=== PATIENT | male | born 1935 | race Caucasian/White ===

== ENCOUNTER 2023-12-04 18:28 | Observation (INO) | payer OTHER, SELFPAY ==
[2023-12-04 13:20] VITALS: BMI 24.0
[2023-12-04] MEDS: NSS 1000 IV (13:43)
[2023-12-04 14:00] LABS: % Basophils 0.2 % (0-2); % Eosinophils 0.2 % (0-6); % Immature Granulocytes 0.6 % (0-0.5); % Lymphocytes 16.6 % (20.5-51.1); % Monocytes 13.4 % (1.7-9.3); Absolute Lymphocytes 0.8 10^3/uL (1.2-3.4); Absolute Monocytes 0.6 10^3/uL (0.1-0.6); Absolute Neutrophils 3.3 10^3/uL (1.4-6.5); COVID-19 Antigen Positive (Negative); Hematocrit 33.3 % (39.0-52.0); Hemoglobin 12.1 g/dL (13.0-18.0); Mean Corp Hgb Conc. 36.3 g/dL (33.0-37.0); Mean Corpuscular Hgb 31.6 pg (27.0-31.0); Mean Corpuscular Volume 86.9 fL (80.0-94.0); Mean Platelet Volume 10.6 fL (7.4-10.4); Nucleated Red Blood Cells % 0 % (-); Platelet Count 210 10^3/uL (130-400); Red Blood Cell Count 3.83 10^6/uL (4.70-6.10); White Blood Cell Count 4.7 10^3/uL (4.8-10.8)
[2023-12-04 14:10] LABS: ALT (SGPT) 16 U/L (0-50); AST (SGOT) 26 U/L (17-59); Albumin 3.4 g/dl (3.5-5.0); Alkaline Phosphatase 61 U/L (38-126); Blood Urea Nitrogen 17 mg/dl (9-20); Calcium 8.3 mg/dl (8.4-10.2); Carbon Dioxide 23 mmol/L (22-30); Chloride 104 mmol/L (98-107); Estimated Creatinine Clearance 79 ml/min; Glucose 108 mg/dl (70-99); Sodium 132 mmol/L (135-145); Total Bilirubin 1.1 mg/dl (0.2-1.3); Total Protein 6.1 g/dl (6.3-8.2); eGFR > 60.00
[2023-12-04 15:18] VITALS: BP 114/97
--- NOTE | 2023-12-04 15:25 | ED.GENMED ---
History of Present Illness
<Dolores Melgar MD, Resident - Last Filed: 12/04/23 20:08>
General
Chief Complaint: Fainting/Passed Out
Source: patient
Time Seen by Provider: 12/04/23 15:04
History of Present Illness
History of Present Illness:
87 years old male presented to ER today complaining from passing put today at the bathroom. The patient reported that he started to feel dizzy and lightheadedness today when he was in the bathroom and slowly collapsed on the floor. The patient`s
helped him to fall down slowly. Reports he does not remember how he collapsed on the floor. Denies hitting his head. Denies SOB and chest pain or feeling different palpitations at that time. The patient reports he has a billing and insurance coordinator at
[facility] (Dr Donte Sanchez) who recommended him to have a pace maker. He was not scheduled for a pace maker. Patient and his verbally agreed to contact with their billing and insurance coordinator and gather his recent information.
PMH:HTN, PVC, BPH
Past Surgical History:Left Hip Surgery
If applicable-neuro sx onset
Onset of symptoms known: Yes
Date of onset of symptoms: 12/04/23
Past History
<Dolores Melgar MD, Resident - Last Filed: 12/04/23 20:08>
Past History
ED Past Medical History: HTN, Other (PVC) and Other (BPH )
Phy Exam
<Dolores Melgar MD, Resident - Last Filed: 12/04/23 20:08>
General Physical Exam
General Presentation: moderate distress
General age: appears stated age
General Skin: dry
General Habitus: elderly
General Mental: alert
Cardiovascular Exam
Cardiovascular Exam: no edema and bradycardia
Pulmonary Exam
Pulmonary Exam: lungs clear and no respiratory distress
Neurological Exam
Neurological Exam: alert, oriented x3, CN II-XII intact and no motor deficits
Course
<Dolores Melgar MD, Resident - Last Filed: 12/04/23 20:08>
Orders/Labs/Results
Orders:
Orders
12/04/23 13:19
Electrocardiogram (*1) Urgent
Reason for Study: Syncope
EKG- Treatment ONCE
12/04/23 13:38
CMP [Comprehensive Metabolic Panel] Urgent
COVID-19 Antigen Urgent
Source: Nasal Swab
Complete Blood Count/With Diff Urgent
12/04/23 13:43
0.9% Sodium Chloride 1000 ml [Nss] 1,000 ml IV BOLUS
12/04/23 Dinner
Regular
At Your Request: Full Participation
Does patient need a safe tray?: No
12/04/23 16:13
Add On- LAB Urgent
Tests Added?: troponin
CR Chest - 2 Views Urgent
Comment:
Reason For Exam: COVID PNA?
12/04/23 18:01
Admit/Transfer Patient As Directed
Co-Sign Provider:
Level of Care: Observation services
Assign to:: Telemetry
Physician / Group: jin
Diagnosis: syncope
Reason for Telemetry: Arrhythmia
Date to Stop Telemetry: 12/07/23
Time to Stop Telemetry: 11:00
Code Status As Directed
Resuscitation Status: Full Code
PRN Pain Medication Management As Directed
May give lesser potent ordered pain med per pt: Yes
preference::
Protocol:: Medication orders for pain may be administered in a
manner that supports deferring to patient preference
when the pt is:
- Requesting an ordered lesser potent pain medication.
Least to most potent pain medications are defined
as: acetaminophen < NSAID < tramadol < opioids
(morphine, oxycodone, hydromorphone).
- Requesting a lesser dose of the same medication IF
ORDERED.
- Requesting a less intrusive route of administration
if both routes are prescribed by the provider (PO <
IV).
12/04/23 18:08
Potassium Chloride [KCl] 40 meq PO NOW STA
12/04/23 19:37
Acetaminophen [Tylenol] 650 mg PO Q4HPRN PRN
12/04/23 19:37
CARDIOLOGY CONSULT Routine
Consulting Provider: Brian Krause
Was physician already notified: Yes
Activity As Directed
Activity Level: As Tolerated
Orthostatic Vital Signs As Directed
Orthostatic VS Frequency: Now
Vital Signs As Directed
Frequency: Per unit guidelines
DX Deep Vein Thrombosis Video Routine
12/04/23 20:00
Heparin 5,000 units SC Q12
NIFEdipine EXTENDED RELEASE [Procardia Xl (Extended Release)] 30 mg PO BID
Nirmatrelvir/Ritonavir [Paxlovid 2X150 mg-100 mg Dose Pack] 1 dose PO BID
12/04/23 22:00
Tamsulosin [Flomax] 0.4 mg PO HS
12/05/23 06:00
Complete Blood Count/With Diff IN AM
Comprehensive Metabolic Panel IN AM
12/05/23 08:00
Atorvastatin [Lipitor] 10 mg PO DAILY
Hydrochlorothiazide [Oretic] 25 mg PO DAILY
Lisinopril [Zestril] 5 mg PO DAILY
12/07/23 11:00
DC Protocol for Telemetry ONCE
Abnormal Lab Results
12/04/23
13:38
WBC 4.7 L 10^3/uL
(4.8-10.8)
RBC 3.83 L 10^6/uL
(4.70-6.10)
Hgb 12.1 L g/dL
(13.0-18.0)
Hct 33.3 L %
(39.0-52.0)
MCH 31.6 H pg
(27.0-31.0)
MPV 10.6 H fL
(7.4-10.4)
Absolute Lymphs (auto) 0.8 L 10^3/uL
(1.2-3.4)
Immature Gran % 0.6 H %
(0-0.5)
Lymphocytes % 16.6 L %
(20.5-51.1)
Monocytes % 13.4 H %
(1.7-9.3)
Sodium 132 L mmol/L
(135-145)
Potassium 3.0 L mmol/L
(3.5-5.1)
Glucose 108 H mg/dl
(70-99)
Calcium 8.3 L mg/dl
(8.4-10.2)
Total Protein 6.1 L g/dl
(6.3-8.2)
Albumin 3.4 L g/dl
(3.5-5.0)
SARS-CoV-2 Antigen Positive A
(Negative)
12/04/23 13:38
12/04/23 13:38
Vital Signs
Initial and Last Documented VS:
Initial Vital Signs
Pulse Resp
66 21
12/04/23 13:23 12/04/23 13:23
Last Documented Vital Signs
Temp Pulse Resp BP Pulse Ox
98.1 F 55 20 148/58 96
12/04/23 20:01 12/04/23 21:16 12/04/23 20:01 12/04/23 20:02 12/04/23 20:01
Ofelialt;Marissa Mendenhall MD - Last Filed: 12/04/23 23:10>
Orders/Labs/Results
Orders:
Orders
12/04/23 13:19
Electrocardiogram (*1) Urgent
Reason for Study: Syncope
EKG- Treatment ONCE
12/04/23 13:38
CMP [Comprehensive Metabolic Panel] Urgent
COVID-19 Antigen Urgent
Source: Nasal Swab
Complete Blood Count/With Diff Urgent
12/04/23 13:43
0.9% Sodium Chloride 1000 ml [Nss] 1,000 ml IV BOLUS
12/04/23 Dinner
Regular
At Your Request: Full Participation
Does patient need a safe tray?: No
12/04/23 16:13
Add On- LAB Urgent
Tests Added?: troponin
CR Chest - 2 Views Urgent
Comment:
Reason For Exam: COVID PNA?
12/04/23 18:01
Admit/Transfer Patient As Directed
Co-Sign Provider:
Level of Care: Observation services
Assign to:: Telemetry
Physician / Group: jin
Diagnosis: syncope
Reason for Telemetry: Arrhythmia
Date to Stop Telemetry: 12/07/23
Time to Stop Telemetry: 11:00
Code Status As Directed
Resuscitation Status: Full Code
PRN Pain Medication Management As Directed
May give lesser potent ordered pain med per pt: Yes
preference::
Protocol:: Medication orders for pain may be administered in a
manner that supports deferring to patient preference
when the pt is:
- Requesting an ordered lesser potent pain medication.
Least to most potent pain medications are defined
as: acetaminophen < NSAID < tramadol < opioids
(morphine, oxycodone, hydromorphone).
- Requesting a lesser dose of the same medication IF
ORDERED.
- Requesting a less intrusive route of administration
if both routes are prescribed by the provider (PO <
IV).
12/04/23 18:08
Potassium Chloride [KCl] 40 meq PO NOW STA
12/04/23 19:37
Acetaminophen [Tylenol] 650 mg PO Q4HPRN PRN
12/04/23 19:37
CARDIOLOGY CONSULT Routine
Consulting Provider: Brain Krause
Was physician already notified: Yes
Activity As Directed
Activity Level: As Tolerated
Orthostatic Vital Signs As Directed
Orthostatic VS Frequency: Now
Vital Signs As Directed
Frequency: Per unit guidelines
DX Deep Vein Thrombosis Video Routine
12/04/23 20:00
Heparin 5,000 units SC Q12
NIFEdipine EXTENDED RELEASE [Procardia Xl (Extended Release)] 30 mg PO BID
Nirmatrelvir/Ritonavir [Paxlovid 2X150 mg-100 mg Dose Pack] 1 dose PO BID
12/04/23 22:00
Tamsulosin [Flomax] 0.4 mg PO HS
12/05/23 06:00
Complete Blood Count/With Diff IN AM
Comprehensive Metabolic Panel IN AM
12/05/23 08:00
Atorvastatin [Lipitor] 10 mg PO DAILY
Hydrochlorothiazide [Oretic] 25 mg PO DAILY
Lisinopril [Zestril] 5 mg PO DAILY
12/07/23 11:00
DC Protocol for Telemetry ONCE
Abnormal Lab Results
12/04/23
13:38
WBC 4.7 L 10^3/uL
(4.8-10.8)
RBC 3.83 L 10^6/uL
(4.70-6.10)
Hgb 12.1 L g/dL
(13.0-18.0)
Hct 33.3 L %
(39.0-52.0)
MCH 31.6 H pg
(27.0-31.0)
MPV 10.6 H fL
(7.4-10.4)
Absolute Lymphs (auto) 0.8 L 10^3/uL
(1.2-3.4)
Immature Gran % 0.6 H %
(0-0.5)
Lymphocytes % 16.6 L %
(20.5-51.1)
Monocytes % 13.4 H %
(1.7-9.3)
Sodium 132 L mmol/L
(135-145)
Potassium 3.0 L mmol/L
(3.5-5.1)
Glucose 108 H mg/dl
(70-99)
Calcium 8.3 L mg/dl
(8.4-10.2)
Total Protein 6.1 L g/dl
(6.3-8.2)
Albumin 3.4 L g/dl
(3.5-5.0)
SARS-CoV-2 Antigen Positive A
(Negative)
12/04/23 13:38
12/04/23 13:38
Vital Signs
Initial and Last Documented VS:
Initial Vital Signs
Pulse Resp
66 21
12/04/23 13:23 12/04/23 13:23
Last Documented Vital Signs
Temp Pulse Resp BP Pulse Ox
98.1 F 55 20 148/58 96
12/04/23 20:01 12/04/23 21:16 12/04/23 20:01 12/04/23 20:02 12/04/23 20:01
<Dolores Melgar MD, Resident - Last Filed: 12/04/23 20:08>
MDM/Problems Addressed
Differential Diagnosis Includes:
VA, Arrhythmia, TIA, Dehydration, Musculoskeletal problems, PNA
MDM/Problems Addressed:
CBC, CMP, Covid test, influenza was ordered. [facility] Syncope Rule assessment was done for the patient.
It was decided to admit the patient to the hospital.
<Dolores Melgar MD, Resident - Last Filed: 12/04/23 20:08>
*Critical Care Note
Total Time (30-74mins, 75-104mins- exclusive of procedures): Not Applicable
ED Attending Note
<Dolores Melgar MD, Resident - Last Filed: 12/04/23 20:08>
-
Portions of this chart may have been created with voice recognition software.� Occasional wrong word or��sound alike� substitutions may have occurred due to the inherent limitations of voice recognition software.
<Marissa Mendenhall MD - Last Filed: 12/04/23 23:10>
ED Attending Note
Patient seen and examined by attending physician: Yes
I performed a history and physical exam of patient and discussed management with resident, I reviewed resident's note and agree with documented findings and plan of care.: Yes
ED Attending Note:
Patient is a 87-year-old male with history of hypertension, PVCs on metoprolol, hyperlipidemia presenting to the emergency department after syncopal event. Patient was diagnosed with COVID 2 days ago. He has been having decreased p.o. secondary to
it. Has been having fevers chills cough congestion. Today he was lightheaded dizzy when he went to the bathroom. He got up was walking was extremely weak so he is walking with a walker with assistance of his . He then became more lightheaded
dizzy and had a syncopal event the last seconds. No body wide shaking. No postictal period. His did catch him to the ground. Patient denies any fevers or chills today. No nausea vomiting. No diarrhea. No chest pain or difficulty
breathing. does state that this morning they checked his heart rate is in the 40s and his blood pressure was in the 90s. He has been taking his metoprolol. Denies any numbness tingling. No weakness. He did receive a liter of fluids and
feels much better. Per the EMS did note some sort of heart block during their evaluation. Vitals here are notable for normal blood pressure and heart rate in the 60s. Per my interpretation of the monitor he does have multiple PVCs. Exam
does show dry oral mucosa. Lungs do sound coarse in the right upper lobe. He does not have any neurodeficits.
mdm:
Patient is a 87-year-old male with history of hypertension, hyperlipidemia PVCs on metoprolol presenting to the emergency department after syncopal event in the setting of being positive for COVID. Vitals are unremarkable and exam is notable for dry
oral mucosa and a heart rate in the 60s with PVCs on the monitor..
Differential: Dehydration versus orthostatic syncope versus arrhythmia especially given the concern for heart block per medic
MDM: Given patient has been having decreased p.o. he could be dehydrated causing him to be lightheaded dizzy. He denied any chest pain during the event however medics did note heart block during their evaluation. He also could have had worsening
bradycardia given that he is on metoprolol and could have an PAULA with a dehydration. History and exam not consistent with seizure or stroke or aortic pathology.
I will order basic blood work COVID swab EKG and chest x-ray and considered ordering CT scan of the head however based of [facility] syncope rule he is low risk we will hold off
He did receive IV fluids.
Blood work is notable for potassium of 3.0. He is COVID-positive. EKG per my interpretation with right bundle branch block as well as first-degree AV block. Chest x-ray per my interpretation with no obvious focal opacity. Pending official read.
Given the syncopal event with possible arrhythmia patient will need admission. Discussed with hospitalist who is in agreement
Discharge Plan
Departure
Patient Disposition: Admit
Date of Disposition: 12/04/23
Time of Disposition: 17:35
Presentation/result/management discussed w/ accepting MD/DO: Hospitalist
Discharge Problem:
Syncope
Interventions
Interventions:
*Risk Screen - Suicide Last Done: 12/04/23 13:20
*General Assessment Last Done: 12/04/23 13:21
*Neglect/Abuse Screening Last Done: 12/04/23 13:20
ED- Fall Risk Assessment Last Done: 12/04/23 13:23
*ED COVID-19 Vaccine History Last Done: 12/04/23 19:40
*Nursing Disposition Last Done: 12/04/23 19:29
ED- Cardiac Assessment Last Done: 12/04/23 13:32
ED- Neurological Assessment Last Done: 12/04/23 13:32
Discharge Date and Time
Discharge Date/Time: 12/04/23 19:30
[2023-12-04 16:01] VITALS: BP 154/73
--- NOTE | 2023-12-04 18:05 | HPS.HSE ---
Family Physician
-
Family Physician: Gelacio Martinez
Chief Complaint
-
syncope
History of Present Illness
87-year-old male past medical history of hypertension, PVCs, BPH, hyperlipidemia, presenting for syncopal episode. He started to feel dizzy and lightheaded today while he was in the bathroom and slowly collapsed on the floor. The patient's
helped him fall down slowly. He does not remember how he collapsed on the floor but only passed out for few seconds. He denies hitting his head. Denies shortness of breath or chest pain or palpitations.
Patient states that his compressor engineer at [facility] Dr. Sanchez told him that he had a mild bradycardia and might require a pacemaker at some point. Patient denied any prior symptoms of dizziness or passing out.
Patient was feeling very fatigued over the past few days and was checked for COVID and found to be positive. He denies any cough or shortness of breath or nausea or vomiting or diarrhea. He has had very decreased oral intake. He started Paxlovid
yesterday.
EMS apparently noted heart block their arrival and as per the strip shown by it shows first-degree AV block.
He drinks alcohol occasionally. He denies smoking. Denies any drugs.
Medical History
Past Medical History
Past Medical History: Reports Other (hypertension, PVCs, BPH, hyperlipidemia)
Past Surgical History: Reports Other (Left Hip Surgery )
Social History
Tobacco: Non-smoker
Alcohol: Occasional
Drug: None
Family History
Family History: Not pertinent
Allergies / Home Medications
Allergies reflects when Allergies were last updated in [facility].
Home Medications with original date entered in [facility]
Allergy/Medication List:
Allergies
Allergy/AdvReac Type Severity Reaction Status Date / Time
doxycycline Allergy Rash Verified 12/04/23 13:23
Penicillins Allergy Rash Verified 12/04/23 13:23
Home Medications
hydrochlorothiazide 50 mg tablet 25 mg PO DAILY 12/04/23
lisinopril 5 mg tablet 5 mg PO DAILY 12/04/23
metoprolol tartrate 25 mg tablet 12.5 mg PO BID 12/04/23
nifedipine 30 mg tablet,extended release 30 mg PO BID 12/04/23
nirmatrelvir 300 mg (150 mg x2)-ritonavir 100 mg tablet,dose pack (Paxlovid) 1 ea PO BID 12/04/23
simvastatin 10 mg tablet 10 mg PO DAILY 12/04/23
tamsulosin 0.4 mg capsule 0.4 mg PO HS 12/04/23
Review of Systems
-
History Source: Patient
A 12 point ROS was completed and negative except as noted: Yes
Constitutional: Reports No Symptoms
EENT: Reports No Symptoms
Respiratory: Reports See HPI
Cardiac: Reports See HPI
Abdomen/GI: Reports No Symptoms
: Reports No Symptoms
Musculoskeletal: Reports No Symptoms
Skin: Reports No Symptoms
Neurological: Reports No Symptoms
Endocrine: Reports No Symptoms
Hematologic/Lymphatic: Reports No Symptoms
Psych: Reports No Symptoms
Physical Exam
Vital Signs
Vital Signs
Temp Pulse Resp BP Pulse Ox
98.0 F 68 17 154/73 99
12/04/23 16:11 12/04/23 16:01 12/04/23 16:01 12/04/23 16:01 12/04/23 16:02
Physical Exam
General: Well Developed, Well Nourished and No Apparent Distress
HEENT: NormoCephalic, Moist mucous membranes and Atraumatic
Respiratory: Clear
Cardiac: S1/S2 and Regular Rhythm; No Murmur or Rub
GI: Soft, Non Tender, Non Distended and Normal Bowel Sounds; No Organomegaly
Rectal: Deferred by Provider
Musculoskeletal: No Clubbing, No Cyanosis and No Edema
Skin: No Rash
Neuro: Nonfocal/grossly intact
Laboratory Results
-
12/04/23 13:38
12/04/23 13:38
Laboratory Results
Total Bilirubin 1.1 mg/dl (0.2-1.3) 12/04/23 13:38
AST 26 U/L (17-59) 12/04/23 13:38
ALT 16 U/L (0-50) 12/04/23 13:38
Alkaline Phosphatase 61 U/L (38-126) 12/04/23 13:38
Data Reviewed
-
Lab Data: Labs Reviewed by me
Old Records: Reviewed
Impression/Plan
-
IMPRESSION:
PLAN:
# Syncope possibly secondary to vagal episode secondary to decreased p.o. intake from COVID/orthostatic hypotension versus symptomatic bradycardia
# First-degree AV block
# History of PVCs
-EKG shows sinus bradycardia with heart rate of 59, first-degree AV block with occasional PVCs, no prior EKG available
-IV fluids given
-telemetry monitoring
-Check orthostatic vital sign
-Hold metoprolol
-Cardiology consulted by ER, may need further outpatient monitoring
# COVID infection
-Not hypoxic
-Chest x-ray unremarkable
-Continue Paxlovid, this should not cause hypotension or syncope
# Hypokalemia secondary to HCTZ
-Replete potassium
Essential hypertension
-Continue nifedipine, lisinopril
-Hold metoprolol
BPH
-Continue tamsulosin
Hyperlipidemia
-Continue statin
Full code
DVT prophylaxis�heparin
Regular diet
[2023-12-04] MEDS: KCL 40 MEQ PO (18:36)
[2023-12-04 19:40] VITALS: BMI 24.1
[2023-12-04 20:01] VITALS: BP 157/72
[2023-12-04 20:02] VITALS: BP 148/58; BP 154/66
--- NOTE | 2023-12-04 20:21 | PTCARENOTE ---
Patient arrived from ED, patient pulled himself over into bed. Remains on RA, able to participate with admission good historian. ortho BP taken as ordered.
[2023-12-04] MEDS: HEPARIN 5000 UNITS SC (21:15)
[2023-12-04] MEDS: PAXLOVID 2X150 MG-100 MG DOSE PACK 1 DOSE PO (21:15)
[2023-12-04] MEDS: PROCARDIA XL (EXTENDED RELEASE) 30 MG PO (21:16)
[2023-12-04 23:35] VITALS: BP 129/56
[2023-12-05] VITALS (7 sets, daily range): BP systolic 118–158; BP diastolic 55–75; PULSE 63–71
--- NOTE | 2023-12-05 08:36 | CON.CAR ---
Addendum entered and electronically signed by Brian Krause MD 12/05/23 11:51:
I saw and examined the patient.
The Terrestrial Ecologist's note was reviewed and I agree with the note.
Comment:
GEN: No distress, awake, Ox3
HEENT: supple, anicteric, mmm
LUNGS: CTA, no wheezes/rales
CV: Reg, S1/S2, 1/6 syst LSB, no gallop
ABD: soft, BS+, NT/ND
EXT: No edema
NEURO: Gross non-focal
SKIN: No rash
Plan:
87-year-old male with history of HTN,Lipids, PVCs, and nonsustained ventricular tachycardia presents with an episode of syncope. 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 The etiology of this episode of syncope remains unclear. He
was on a low-dose metoprolol 12.5 p.o. twice daily.
We will check an echocardiogram continue telemetry. Currently on telemetry he is having frequent PVCs, short runs of nonsustained ventricular tachycardia with intermittent heart rates in the 50s. While I am not sure whether his syncope was related
to his rhythm, we are going to stop his beta-chris and follow him clinically. I suspect though with his arrhythmias he will need beta-chris therapy and proceeding with permanent pacemaker placement once he recovers from COVID would be
reasonable. I will discuss this case further with electrophysiology.
His blood pressure is currently stable. Okay to continue lisinopril and nifedipine. Could further titrate lisinopril if needed for blood pressure control.
Original Note:
Consultation
Consultation Request
Date/Time Consultation Performed: 12/05/23
Requesting Provider: Dr. Min
Performing Provider: Anat Ramirez PA-C for Dr. Krause
Reason for Consultation: bradycardia
Medical History
-
Chief Complaint: syncope
History of Present Illness:
Patient is an 87 yo M with PMH of HTN, HLD, BPH, PVCs who presented to due to episode of syncope. Began to feel lightheaded and dizzy while in bathroom and collapsed to floor. was present and helped lower him to ground. He had poor appetite
and fatigue and was diagnosed with covid 3 days ago and was started on paxlovid 12/03/23. He is followed by [facility] cardiology, Dr. Sanchez and reportedly was told he may need a pacemaker at some point due to bradycardia. No history of syncopal
episodes. EKG on arrival to ER sinus esequiel with 1st degree av block and bifascicular block. Cardiology consulted for evaluation.
PMH:
HTN
HLD
BPH
Past Medical History
Past Medical History: Other (in HPI)
Social History
Tobacco: Non-Smoker
Alcohol: Occasional
Personal:
Living: With Family
Allergies / Home Medications
Allergy/AdvReac Type Severity Reaction Status Date / Time
doxycycline Allergy Rash Verified 12/04/23 13:23
Penicillins Allergy Rash Verified 12/04/23 13:23
�Medication �Instructions �Recorded �Confirmed �Type
alprazolam 0.5 mg tablet 0.5 mg PO HSPRN PRN sleep/anxiety 12/04/23 12/04/23 History
hydrochlorothiazide 50 mg tablet 25 mg PO DAILY Fluid 12/04/23 12/04/23 History
Retention/Swelling
lisinopril 5 mg tablet 5 mg PO HS Blood Pressure 12/04/23 12/04/23 History
metoprolol succinate 25 mg 12.5 mg PO BID Heart Failure 12/04/23 12/04/23 History
tablet,extended release 24 hr
nifedipine 30 mg tablet,extended 30 mg PO BID Blood Pressure 12/04/23 12/04/23 History
release
nirmatrelvir 300 mg (150 mg 3 ea PO BID COVID 12/04/23 12/04/23 History
x2)-ritonavir 100 mg tablet,dose
pack (Paxlovid)
simvastatin 10 mg tablet 10 mg PO HS High Cholesterol 12/04/23 12/04/23 History
tamsulosin 0.4 mg capsule 0.4 mg PO HS Urinary Issue 12/04/23 12/04/23 History
trazodone 50 mg tablet 50 mg PO HS Sleep 12/04/23 12/04/23 History
Review of Systems
-
History Source: Patient
All other systems: Negative unless noted
Physical Exam
Vital Signs
Temp Pulse Resp BP Pulse Ox
98.4 F 75 18 152/75 96
12/05/23 03:53 12/05/23 03:53 12/05/23 03:53 12/05/23 03:53 12/05/23 03:53
Impression / Plan
-
Primary Field Service Tech: Dr. Sanchez of [facility]
Assessment:
Presentation with fatigue, syncope
Bradycardia
1st degree AV block
Bifascicular block
Acute covid illness
Hypokalemia
Hyponatremia
PVCs/couplets
HTN
HLD
BPH
Plan:
-Patient presents with syncope in setting of acute covid illness. noted to be bradycardic on arrival with 1st degree av block and bifascicular block
-etiology of syncope unclear, differential includes dehydration, orthostasis, bradycardia
-no urgent need for PPM at present, however likely will require a pacemaker at some point. no high grade av block noted on review of tele overnight and frequent ectopy
-holding OP toprol and follow on tele while admitted
-replete K. check mag
-check ortho VS. holding HCTZ given syncope and hyponatremia/hypokalemia
-records requested for review from primary charrer
-check TSH
-consider echo if not completed recently
-supportive care of covid. CXR without PNA. continue paxlovid
Data Reviewed
-
EKG: Tracing Personally Visualized and interpreted
Radiology: Report Reviewed by me
Labs: Labs Reviewed by me
Old Records: Requested
[2023-12-05] MEDS: PAXLOVID 2X150 MG-100 MG DOSE PACK 1 DOSE PO ×2 (08:51→21:24)
[2023-12-05] MEDS: PROCARDIA XL (EXTENDED RELEASE) 30 MG PO ×2 (08:52→21:24)
[2023-12-05] MEDS: HEPARIN 5000 UNITS SC ×2 (08:52→21:28)
[2023-12-05 11:04] LABS: % Basophils 0.2 % (0-2); % Eosinophils 0.5 % (0-6); % Immature Granulocytes 0.9 % (0-0.5); % Lymphocytes 23.5 % (20.5-51.1); % Monocytes 11.9 % (1.7-9.3); Absolute Monocytes 0.5 10^3/uL (0.1-0.6); Absolute Neutrophils 2.7 10^3/uL (1.4-6.5); Blood Urea Nitrogen 12 mg/dl (9-20); Carbon Dioxide 23 mmol/L (22-30); Chloride 100 mmol/L (98-107); Estimated Creatinine Clearance 79 ml/min; Glucose 122 mg/dl (70-99); Hematocrit 33.5 % (39.0-52.0); Hemoglobin 12.2 g/dL (13.0-18.0); Mean Corp Hgb Conc. 36.4 g/dL (33.0-37.0); Mean Corpuscular Hgb 31.8 pg (27.0-31.0); Mean Corpuscular Volume 87.2 fL (80.0-94.0); Mean Platelet Volume 10.5 fL (7.4-10.4); Nucleated Red Blood Cells % 0 % (-); Platelet Count 199 10^3/uL (130-400); Potassium 3.6 mmol/L (3.5-5.1); Red Blood Cell Count 3.84 10^6/uL (4.70-6.10); Red Cell Dist. Width 13.9 % (11.5-14.5); Sodium 134 mmol/L (135-145); White Blood Cell Count 4.3 10^3/uL (4.8-10.8); eGFR > 60.00
[2023-12-05 11:05] LABS: ALT (SGPT) 20 U/L (0-50); AST (SGOT) 32 U/L (17-59); Alkaline Phosphatase 64 U/L (38-126); Total Bilirubin 1.3 mg/dl (0.2-1.3); Total Protein 6.8 g/dl (6.3-8.2)
--- NOTE | 2023-12-05 11:08 | W.PN.UPDATE ---
Update Note
Progress Note Update
Records obtained and reviewed from patient's primary cardiology office, [facility]. Last echocardiogram in 2017 with EF 55%, mild MR, sclerotic aortic valve, mild AI, borderline aortic root dilatation, mildly dilated ascending aorta. Reviewed last office
visit and EKG from 07/10/2023 sinus bradycardia with first-degree AV block and bifascicular block. Heart rate was 55.
[2023-12-05] MEDS: KCL 20 MEQ PO (11:22)
[2023-12-05 11:34] LABS: Magnesium 1.9 mg/dl (1.6-2.3)
--- NOTE | 2023-12-05 13:56 | W.PN.HOSP.TC ---
Today's Communication/Plan
-
Discontinue beta-chris
Monitor on telemetry
Assessment / Plan
Assessment / Plan
#Syncope -- DDx include sick sinus syndrome, vasovagal response, ventricular arrhythmia; less likely orthostatic
#First-degree AV block with sinus bradycardia
#H/O PVCs and NSVT
#H/O Trifascicular block
-EKG with sinus bradycardia at 59/min, first-degree AV block, PVCs
-From history this does sound vasovagal though he has multiple risk factors for underlying arrhythmia
-Upon arrival metoprolol and HCTZ held, given IV fluids; orthostatic vital signs this morning were negative
-On telemetry he has had frequent PVCs, runs of NSVT, that now obvious identifiable arrhythmia to cause this
-As of this morning he is asymptomatic and hemodynamically stable with borderline normal HR
-Cardiology following
Plan
-Hold metoprolol, continue to monitor telemetry
-Plan for potential pacemaker placement
-Electrolyte goals K >4, mag >2
#COVID infection
-No shortness of breath or hypoxemia
-Chest x-ray unremarkable, no indication for steroid
-Continue Paxlovid, this should not cause hypotension or syncope
#Essential hypertension
-Home medications include metoprolol, nifedipine, lisinopril, HCTZ
-Metoprolol held for bradycardia, HCTZ held for possible orthostasis
-BP is adequate for his age, minimal risk factors, goal <140/90
-Remains on nifedipine and lisinopril
#BPH
-Tamsulosin was initially held, orthostatic vital signs were
-Restart tamsulosin today
#Hyperlipidemia
-No known history of ASCVD
-Remains on statin
Full code
DVT prophylaxis�heparin
Regular diet
Anticipated Discharge: 24 - 48 hours
Subjective/Interval History
-
Date of Service: December 05, 2023
Seen and examined at the bedside this morning. No acute events reported since admission.
He states he feels well, has no acute complaints this morning. He denies chest pain, shortness of breath, fevers or chills, nausea, vomiting, diarrhea, constipation, paresthesia, weakness, abnormal bleeding or bruising, urinary issues.
He mentions that he did have another syncopal episode roughly 15 years ago, though he was participating in a exercise class and was dehydrated. States that he was using the commode when the symptoms started this time. States that he does have
mounter smoking pipe to told him that 'his heart is getting old' and he may require pacemaker at some point.
Objective Data
-
Labs:
Laboratory Results
12/05/23
10:37
WBC 4.3 L
Hgb 12.2 L
Hct 33.5 L
Plt Count 199
Sodium 134 L
Potassium 3.6
Chloride 100
Carbon Dioxide 23
BUN 12
Creatinine 0.7
Glucose 122 H
Calcium 9.0
Total Bilirubin 1.3
AST 32
ALT 20
Alkaline Phosphatase 64
Vital Signs:
Vital Signs
Temp Pulse Resp BP Pulse Ox
97.9 F 63 18 158/68 98
12/05/23 07:40 12/05/23 07:40 12/05/23 07:40 12/05/23 07:40 12/05/23 07:40
I&O
12/04/23 12/05/23 12/06/23
06:59 06:59 06:59
Output Total 600 / 600
Balance -600 / -600
Review of Systems
-
History Source: Patient
All other systems: Reviewed and negative
Physical Exam
-
General: No Apparent Distress and Comfortable
HEENT: Normocephalic, Atraumatic and Moist Mucous Membranes
Respiratory: Clear to Auscultation and Non Labored Respirations; Negative Wheezes, Rales or Rhonchi
Cardiac: S1/S2, Murmur (2/6 MARGARITO) and Bradycardic; Negative JVD
GI: Soft, Nontender, Nondistended and Normal Bowel Sounds
Musculoskeletal: No Clubbing, No Cyanosis and No Edema
Skin: Warm, Dry and Normal Turgor; Negative Rash
Neuro: AO x 3, Nonfocal/Grossly Intact and Central Nerve's Intact; Negative Tremors
Data Reviewed
-
Labs: Labs Reviewed by me and Discussed with Family
[2023-12-05] MEDS: KCL 40 MEQ PO (14:48)
[2023-12-05] MEDS: ZESTRIL 5 MG PO (21:28)
[2023-12-06 03:50] VITALS: BP 116/53
--- NOTE | 2023-12-06 07:26 | CM ---
met with patiet at bedside.patient lives with his spouse in house with 3 aries,his bed and bath is on the second floor,he amb I and is I with her adl. jose is poa,dr londono is his pcp and he uses [facility].he has never had
a vn or been in ip rehab.
Pmh:htn,hld,bph,pvc,trifascicular block,nsvt
Patient adm with syncope,found to be covid+ on paxlovid,sating 98% on ra,holding metoprolol,for potential ppm,cards following.patient will have no needs when dc home
[2023-12-06 08:20] VITALS: BP 135/63
--- NOTE | 2023-12-06 08:45 | W.PN.CARDCBS ---
Addendum entered and electronically signed by Antoine Pearl MD 12/06/23 12:22:
I saw and examined the patient.
The KISS MACHINE OPERATOR or PA's note was reviewed and I agree with the note.
Comment: General: Well developed, well nourished in NAD.
Stable cardiology status for discharge. Discussed with patient in detail. Plan is for outpatient pacemaker. He is asked to lead a sedentary lifestyle until procedure is performed
Original Note:
Today's Communication / Plan
-
no toprol
plan to return for OP PPM placement mid week next week ([facility] office will call him with when to report)
Impression / Plan
-
Primary Rn Surgery Icu: Dr. Sanchez of [facility]
Assessment:
Presentation with fatigue, syncope
Bradycardia
1st degree AV block
Bifascicular block
Acute covid illness
Hypokalemia
Hyponatremia
PVCs/couplets
HTN
HLD
BPH
Echo 2017: EF 55%, mild MR, sclerotic aortic valve, mild AI, borderline aortic root dilatation, mildly dilated ascending aorta
Echo 12/05/2023: EF 55 to 60%, no regional wall motion abnormalities noted, mild MR, mild AR
Plan:
-He presented with syncope in the setting of acute COVID illness
-He has bradycardia with first-degree AV block, bifascicular block, PVCs, brief NSVT. Outpatient Toprol has been stopped. He has no evidence of pauses or high-grade AV block on telemetry overnight. No episodes of presyncope or syncope overnight
-Will plan for return for outpatient pacemaker placement next week once recovered from COVID. no strenuous activity or driving upon DC until post PPM. reviewed with patient 12/05 including procedure, activity restrictions post
-Awaiting a.m. labs
-Ortho VS negative on 12/04. Outpatient HCTZ on hold given presentation with syncope and hyponatremia/hypokalemia
-TSH within normal limits
-Echo 12/04 with results as above, preserved EF, mild valvular disease
-supportive care of covid. CXR without PNA. continue paxlovid
-of note, he states he is scheduled for trip to [place] 12/17 with his and to [place] later in the month with some friends.
-Discussed with nursing
Progress Note - Rn Surgery Icu
Subjective
Date of Service: December 06, 2023
no issues overnight. reports feeling well
Objective
Labs:
12/05/23 10:37
Labs
Hgb 12.2 g/dL (13.0-18.0) L 12/05/23 10:37
Hct 33.5 % (39.0-52.0) L 12/05/23 10:37
Plt Count 199 10^3/uL (130-400) 12/05/23 10:37
Sodium 134 mmol/L (135-145) L 12/05/23 10:37
Potassium 3.6 mmol/L (3.5-5.1) 12/05/23 10:37
BUN 12 mg/dl (9-20) 12/05/23 10:37
Creatinine 0.7 mg/dL (0.7-1.3) 12/05/23 10:37
Glucose 122 mg/dl (70-99) H 12/05/23 10:37
Vital Signs and I&O:
Vital Signs
Temp Pulse Resp BP Pulse Ox
97.9 F 64 18 116/53 97
12/06/23 03:50 12/06/23 03:50 12/06/23 03:50 12/06/23 03:50 12/06/23 03:50
Vital Signs
Temp Pulse Resp BP Pulse Ox
97.9 F 64 18 116/53 97
12/06/23 03:50 12/06/23 03:50 12/06/23 03:50 12/06/23 03:50 12/06/23 03:50
Intake & Output
08/12/05/23 12/06/23 12/07/23
07:59 07:59 07:59 07:59
Intake Total 540 / 540
Output Total 600 / 600 820 / 820
Balance -600 / -600 -280 / -280
[2023-12-06] MEDS: HEPARIN 5000 UNITS SC (08:57)
[2023-12-06] MEDS: PAXLOVID 2X150 MG-100 MG DOSE PACK 1 DOSE PO (08:59)
[2023-12-06] MEDS: PROCARDIA XL (EXTENDED RELEASE) 30 MG PO (09:04)
[2023-12-06 09:58] LABS: Blood Urea Nitrogen 12 mg/dl (9-20); Calcium 8.7 mg/dl (8.4-10.2); Carbon Dioxide 23 mmol/L (22-30); Chloride 101 mmol/L (98-107); Estimated Creatinine Clearance 79 ml/min; Glucose 128 mg/dl (70-99); Magnesium 1.9 mg/dl (1.6-2.3); Potassium 3.7 mmol/L (3.5-5.1); Sodium 135 mmol/L (135-145); eGFR > 60.00
--- NOTE | 2023-12-06 10:47 | W.PN.HOSP.TC ---
Today's Communication/Plan
-
Discharge, pacemaker as outpatient with cardiology
Assessment / Plan
Assessment / Plan
#Syncope -- DDx include sick sinus syndrome, vasovagal response, ventricular arrhythmia; less likely orthostatic
#First-degree AV block with sinus bradycardia
#H/O PVCs and NSVT
#H/O Trifascicular block
-EKG with sinus bradycardia at 59/min, first-degree AV block, PVCs
-From history this does sound vasovagal though he has multiple risk factors for underlying arrhythmia
-Upon arrival metoprolol and HCTZ held, given IV fluids; orthostatic vital signs this morning were negative
-On telemetry he has had frequent PVCs, runs of NSVT, that now obvious identifiable arrhythmia to cause this
-As of this morning he is asymptomatic and hemodynamically stable with borderline normal HR
-Cardiology following
Plan
-Hold metoprolol, continue to monitor telemetry
-Plan for pacemaker next week after COVID infection clears
-Electrolyte goals K >4, mag >2
#COVID infection
-No shortness of breath or hypoxemia
-Chest x-ray unremarkable, no indication for steroid
-Continue Paxlovid, this should not cause hypotension or syncope
#Essential hypertension
-Home medications include metoprolol, nifedipine, lisinopril, HCTZ
-Metoprolol held for bradycardia, HCTZ held for possible orthostasis
-BP is adequate for his age, minimal risk factors, goal <140/90
-Remains on nifedipine and lisinopril
#BPH
-Tamsulosin was initially held, orthostatic vital signs were
-Restart tamsulosin today
#Hyperlipidemia
-No known history of ASCVD
-Remains on statin
Full code
DVT prophylaxis�heparin
Regular diet
Anticipated Discharge: Today
Subjective/Interval History
-
Date of Service: December 06, 2023
Seen and examined at the bedside. No acute events reported overnight. He states he feels well, has had no recurrence of symptoms. Has been able to walk around room without issue.
He denies any lightheadedness or presyncope, chest pain, shortness of breath, fevers or chills, nausea, vomiting, diarrhea, urinary issues, abnormal bleeding or bruising, paresthesias or weakness. States that he feels ready to go home today.
Plan for pacemaker as an outpatient, when COVID infection cleared
Objective Data
-
Labs:
Laboratory Results
12/06/23
08:48
Sodium 135
Potassium 3.7
Chloride 101
Carbon Dioxide 23
BUN 12
Creatinine 0.7
Glucose 128 H
Calcium 8.7
Vital Signs:
Vital Signs
Temp Pulse Resp BP Pulse Ox
97.9 F 70 17 140/62 98
12/06/23 08:20 12/06/23 09:04 12/06/23 08:20 12/06/23 09:04 12/06/23 08:20
I&O
12/05/23 12/06/23 12/07/23
06:59 06:59 06:59
Intake Total 540 / 540
Output Total 600 / 600 820 / 820
Balance -600 / -600 -280 / -280
Review of Systems
-
History Source: Patient
All other systems: Reviewed and negative
Physical Exam
-
General: Well Nourished, No Apparent Distress and Comfortable
HEENT: Normocephalic, Atraumatic and Moist Mucous Membranes
Respiratory: Clear to Auscultation and Non Labored Respirations
Cardiac: Regular Rhythm, S1/S2 and Other (Occasional PVCs); Negative Murmur, Rub, JVD or Gallop
GI: Soft, Nontender, Nondistended and Normal Bowel Sounds
Musculoskeletal: No Clubbing, No Cyanosis and No Edema
Skin: Warm and Dry; Negative Rash
Neuro: AO x 3, Nonfocal/Grossly Intact and Central Nerve's Intact
Data Reviewed
-
Labs: Labs Reviewed by me and Discussed with Patient
--- NOTE | 2023-12-06 10:55 | W.DCSUMMARY ---
Discharge Summary
Discharge Data
Date of Admission: 12/04/23
Date of Discharge: 12/06/23
-
Pending Results: No
Hospital Course
Presented to the hospital with a syncopal episode at home after using the bathroom. Upon arrival had significant ectopy on EKG and telemetry strips. Has known trifascicular block, history of NSVT with PVCs. Was told previously that he would
likely require eventually require a pacemaker. No significant malignant rhythm was discovered on electrophysiological monitoring here. Was assessed by cardiology, discontinued his metoprolol in the context of sinus bradycardia and heart rates in
the low 50s. Hydrochlorothiazide was also held, blood pressure remained well-controlled despite holding these medications.
Cardiology planning for pacemaker placement as an outpatient. [facility] will reach out to schedule date. Currently COVID-positive and on Paxlovid which necessitated delay in pacemaker insertion.
Discharge Plan
-
Patient Disposition: Home (Routine Discharge)
Discharge Diagnosis/Procedures: Syncope, likely cardiogenic
Trifascicular block with PVCs and NSVT
Condition: Good
Diet: No restrictions
Activity: As tolerated
Driving Restrictions: No driving for 24 hours
Bathing Restrictions: OK to Shower
Blood Work: None
Others Tests: None
Specialty Instructions: Weigh Daily- Call MD for wt gain/loss 3 lbs overnight/5 lbs in 1 week
Instructions: Pacemaker Insertion, Pacemaker
Referrals:
Gelacio Martinez MD [Family Provider] -
Brian Krause MD [Active] - in less than 1 week ([facility] office should call to schedule your pacemaker date)
Additional Discharge Medication Instructions: STOP toprol (metoprolol)
Stop hydrochlorothiazide until you see your primary care doctor
Do not take trazodone until you finish your course of Paxlovid (can resume trazodone the following evening)
Prescriptions:
Continued
simvastatin 10 mg Tablet
10 mg PO HS
Patient Comments:
12/04/2023: On Hold due to Paxlovid
nifedipine 30 mg Tablet Extended Release
30 mg PO BID
tamsulosin 0.4 mg Capsule
0.4 mg PO HS
lisinopril 5 mg Tablet
5 mg PO HS
Paxlovid 300 mg (150 mg x 2)-100 mg Tablets,Dose Pack
3 ea PO BID
Rx Instructions:
Started 12/02
alprazolam 0.5 mg tablet
0.5 mg PO HSPRN PRN (Reason: sleep/anxiety)
Patient Comments:
12/04/2023: last filled 10/03/23, 90 tabs for 90 days from [facility]
Held
trazodone 50 mg tablet
50 mg PO HS
Hold Instructions: Until you complete your course of Paxlovid
Patient Comments:
12/04/2023: On Hold due to Paxlovid
Discontinued
hydrochlorothiazide 50 mg Tablet
25 mg PO DAILY
metoprolol succinate 25 mg tablet extended release 24 hr
12.5 mg PO BID
Discharge Orders:
Discharge Patient (As Directed); Ordered 12/06/23
Ordered By: Antoine Madison
Discharge Date and Time
Print Language: KYRGYZ
[2023-12-06] MEDS: KCL 40 MEQ PO (10:58)
--- NOTE | 2023-12-06 11:09 | CM ---
Reviewed the chart notes and spoke with the patient via telephone due to Covid + status. Patient is admitted under observational status. [facility]AS letter provided and explained. Patient with no questions regarding letter. Patient's daughter will be
providing transportation home today. CM continues to be available to patient/family and is monitoring medical plan for needs at discharge.
Plan: Discharge to home today.
[2023-12-06 11:30] VITALS: BP 137/62
== END 2023-12-06 14:44 | disposition home or self-care (01) ==
LOC: 2 NORTH 18:28
PROVIDERS: Emergency Medicine; Physician Assistant; ADMITTING PHYSICIAN Hospitalist; ATTENDING PHYSICIAN Internal Medicine; CONSULT PHYSICIAN Internal Medicine Cardiovascular Disease; EMERGENCY PHYSICIAN Student in an Organized Health Care Education/Training Program; FAMILY PHYSICIAN Internal Medicine
DX: R55 Syncope and collapse (principal); R42 Dizziness and giddiness; I11.0 Hypertensive heart disease with heart failure; N40.0 Benign prostatic hyperplasia without lower urinary tract symptoms; E78.00 Pure hypercholesterolemia, unspecified; U07.1 COVID-19; I44.0 Atrioventricular block, first degree; R00.1 Bradycardia, unspecified; E87.6 Hypokalemia; I47.20 Ventricular tachycardia, unspecified; I45.3 Trifascicular block; E87.1 Hypo-osmolality and hyponatremia; Z88.1 Allergy status to other antibiotic agents; Z88.0 Allergy status to penicillin; Z86.79 Personal history of other diseases of the circulatory system; Z53.09 Procedure and treatment not carried out because of other contraindication
CPT/HCPCS: 71046; 80048; 80053; 83735; 84443; 85025; 87811; 93005; 93306; 96360; 99285; G0378

== ENCOUNTER 2023-12-13 11:58 | Day surgery (SDC) | payer OTHER, SELFPAY ==
[2023-12-13] VITALS (9 sets, daily range): BP systolic 125–166; BP diastolic 58–87; BMI 24.8
[2023-12-13] MEDS: VANCOCIN 200 IV (13:35)
--- NOTE | 2023-12-13 15:56 | ITS.CL.PACE ---
Mechanical Engineering Director - Pacemaker Implant
Pacemaker Implant
Procedure Report:
Primary Care Doctor: Gelacio Martinez MD
Primary Concrete Mixer Operator: Brian Krause MD
Procedure Date: 12/13/2023
Name of procedure:
1. Placement of a dual-chamber pacemaker with left bundle area pacing lead for conduction system pacing
2. Subclavian venography
History:
1. Patient is a pleasant 87-year-old male with a past medical history significant for bifascicular block, first-degree block, PVCs, nonsustained VT, hypertension, hyperlipidemia, BPH with symptomatic sick sinus syndrome/sinus bradycardia with
syncope and fatigue.
2. Please refer to H&P for complete history.
Indication:
Symptomatic irreversible bradycardia
Syncope
Sick sinus syndrome
Methods:
After informed consent was obtained, the patient was brought to the EP laboratory in a postabsorptive, nonsedated state. Peripheral IV access was established. Prophylactic antibiotics were administered prior to incision. Continuous ECG, blood
pressure, and pulse oximetry were initiated. Cardioversion patch electrodes were placed on the patient's chest and back. A grounding patch was applied to the skin. Sedation was administered by anesthesia services.
In order to define the extrathoracic portion of the subclavian vein and exclude significant venous obstruction or anomalous anatomy, subclavian venography was performed prior to the procedure. Using the patient's left peripheral IV, contrast was
injected and images were recorded. The left subclavian vein and SVC were found to be widely patent.
The left chest was prepared and draped in a sterile fashion. A time-out was performed. Local anesthesia was injected in the subcutaneous tissue in the infraclavicular area. An incision was made medial to the deltopectoral groove. The subcutaneous
tissue was dissected the level of the prepectoral fascia. A subcutaneous pocket was created. Under fluoroscopic guidance and with the assistance of the images from the venogram, 2 separate venipunctures were made using micropuncture and modified
Seldinger technique. These were performed in the extrathoracic portion of the subclavian vein. Guidewires were passed and two peel-away sheaths were placed, and used to advance leads into the circulation.
Fluoroscopy was used to determine likely anatomic site for left bundle branch pacing. The Medtronic C315 sheath was used to deliver the Medtronic 3830 Selectsecure pacing lead with the helix exposed just exposed from the sheath tip during continuous
monitoring when pacemapping the septum during gentle clockwise rotation to obtain a paced QRS morphology of a W pattern in lead V1. Once the suspected optimal site was identified, lead deployment was performed with several rapid rotations as paced
QRS morphology was intermittently monitored until a paced QRS complex in lead V1 demonstrated development of an R wave (qR or rSR). Unipolar pacing impedance dropped by approximately 100-200 ohms suggesting it had reached the left ventricular
subendocardial. Stable VEgm injury current is present throughout lead position and at end of case. Unipolar pacing threshold is stable at 0.75 V @ 0.4 ms. The patient had pre-existing right bundle branch block morphology at baseline. Final
conduction system paced QRS complex duration is 97 ms, LVAT is 79 ms, and peak V5 -> peak V1 timing is 42 ms. The C315 sheath was slit under fluoroscopy ensuring lead position and stability.
Next, the right atrial lead was positioned in the right atrial appendage. Stable AEgm injury current is present throughout lead position and at end of case. Adequate sensing and pacing parameters were found, and no diaphragmatic stimulation was
seen with high-output pacing. Both sheaths were split, and the leads were secured to the fascia with Ethibond ties.
The pocket was flushed with antibiotic solution and hemostasis was assured. The generator was connected to the leads and placed inside the pocket. The device was sutured to the fascia. The wound was closed with 3 running layers of absorbable
suture, and steri-strips were applied. Dressing applied over steri-strips in standard fashion.
Following the procedure, the patient was taken to the recovery area in stable condition. A chest x-ray to be obtained post procedure as routine.
Lead parameters and device programming:
- RA Lead ([employer], Model 5076, #[id number]): Sensing 2.1 mV, Pacing threshold 1.25 V at 0.4 ms, Imp 646 ohm
- RV Lead (Medtronic, Model 3830, #[id number]): Sensing 7.5 mV, Pacing threshold 0.5 V at 0.4 ms, Imp 855 ohm
- Device: Medtronic, Model W1DR01 pacemaker (#[id number]), programmed AAIR�DDDR, mode switch on, low rate 60, upper tracking rate 130
Conclusions:
1. Successful placement of a dual-chamber pacemaker with conduction system pacing (LBBAP)
2. Subclavian venography
Recommendations:
1. Admit
2. Chest x-ray.
3. IV antibiotics per protocol
4. OK to resume home medications as indicated
5. Pressure dressing to be removed in AM, aquacell to remain until wound check
6. Follow-up will be arranged in the office in 7-10 days post-discharge
Cosmo Luther DO
Clinical Cardiac Promotions Officer
cc: Gelacio Martinez MD; Brian Krause MD
--- NOTE | 2023-12-13 16:21 | CM ---
Chart reviewed. Patient is independent of ADLS, lives with his in a [address], 3 [address], 0 [address]ME. Patient currently with no needs. Plan is for the patient to return home. CM to follow
[2023-12-13] MEDS: TYLENOL 650 MG PO ×2 (16:25→22:40)
[2023-12-13] MEDS: FLUSH (NSS) 1 FLUSH IV (16:26)
--- NOTE | 2023-12-13 16:51 | PTCARENOTE ---
Received patient from the logging rafter laborer post pacemaker placement. Patient is alert, awake, and oriented. Daughter is bedside. Left chest site is clean, dry, and intact. Site has aquacel and pressure dressing. Patient c/o 5/10 pain at surgical site. Gave
PRN Tylenol--see JUN. Pacemaker is DDDR 60-130, AV Paced. BP 144/87, 99% on 2 L. Patient agrees to notify care team with any additional pain. Call gonzáles within reach.
[2023-12-13] MEDS: TOPROL XL 12.5 MG PO (18:04)
[2023-12-13] MEDS: PROCARDIA XL (EXTENDED RELEASE) 30 MG PO (19:46)
[2023-12-13] MEDS: ZESTRIL 5 MG PO (22:39)
[2023-12-13] MEDS: LIPITOR 10 MG PO (22:39)
[2023-12-13] MEDS: FLOMAX 0.4 MG PO (22:39)
--- NOTE | 2023-12-13 23:30 | PTCARENOTE ---
pt pleasant and cooperative. ambulated to br and back to bed without difficulty. left anterior chest wall pacer site dressing dry and intact. immobilizer on.pt medicated with tylenol for mild discomfort at site.pt av paced on monitor. no acute
distress.
--- NOTE | 2023-12-13 23:45 | PTCARENOTE ---
pt oob with assist of one without difficulty. to wheelchair and to xray for chest xray. no pneumo. back in bed. left anterior chest wall dressing dry and intact. immobilizer on. pt av paced/vpaced on monitor. medicated with tylenol for mild
discomfort.
[2023-12-14 04:39] VITALS: BP 140/68
[2023-12-14 05:23] LABS: Hemoglobin 10.9 g/dL (13.0-18.0); Mean Corp Hgb Conc. 36.3 g/dL (33.0-37.0); Mean Corpuscular Hgb 32.2 pg (27.0-31.0); Mean Corpuscular Volume 88.8 fL (80.0-94.0); Mean Platelet Volume 9.5 fL (7.4-10.4); Platelet Count 340 10^3/uL (130-400); Red Blood Cell Count 3.38 10^6/uL (4.70-6.10); Red Cell Dist. Width 13.9 % (11.5-14.5); White Blood Cell Count 6.5 10^3/uL (4.8-10.8)
[2023-12-14 05:45] LABS: Blood Urea Nitrogen 13 mg/dl (9-20); Carbon Dioxide 24 mmol/L (22-30); Chloride 103 mmol/L (98-107); Estimated Creatinine Clearance 78 ml/min; Glucose 82 mg/dl (70-99); Potassium 4.5 mmol/L (3.5-5.1); Sodium 137 mmol/L (135-145); eGFR > 60.00
--- NOTE | 2023-12-14 07:19 | W.PN.CARDCBS ---
Addendum entered and electronically signed by Aaron Marie MD 12/14/23 09:38:
Patient seen, interviewed and examined by me.
Well-appearing, no acute distress
Regular rate and rhythm with normal S1 and S2, no S3 no S4. There is a grade 1/6 apical holosystolic murmur and no rubs. PMI is normally placed.
Lungs are clear to auscultation bilaterally without wheezes rales or rhonchi.
Abdomen soft nontender nondistended with normoactive bowel sounds
Extremities show trace pretibial edema bilaterally no clubbing or cyanosis.
Neurologic exam is grossly nonfocal.
Agree with advanced practice professionals assessment and plan as noted below.
Doing well after pacemaker implantation
Discharge instructions reviewed.
We reviewed our motion restrictions, he understands and all of his questions have been answered.
Stable for discharge to home today.
Original Note:
Today's Communication / Plan
-
D/C to home today with follow up arranged
Impression / Plan
-
Primary Color Depositing Machine Tender: previous drying unit felting machine operator Dr. Sanchez of [facility], just transitioned to Dr. Krause during his recent COVID admission
Assessment:
s/p Medtronic DC PPM 12/13/23
Recent admission for COVID, syncope and bifascicular block 12/04/23 until 12/06/23
HTN
HLD
BPH
Echo 2017: EF 55%, mild MR, sclerotic aortic valve, mild AI, borderline aortic root dilatation, mildly dilated ascending aorta
Echo 12/05/2023: EF 55 to 60%, no regional wall motion abnormalities noted, mild MR, mild AR
Plan:
-Patient was recently admitted to with COVID and syncope 12/04/23 until 12/06/23. Patient previously followed with cardiology at [facility] and came to and has transitioned care. His cousin is Juan Antonio Lopez in echo dept.
-Patient returned for an elective PPM 12/13/23
-Pressure dressing removed and activity limitations reviewed with patient.
-Stable overnight and ready for d/c to home 12/14/23
Progress Note - Color Depositing Machine Tender
Subjective
Date of Service: December 14, 2023
He feels well and wants to go home
Objective
Labs:
12/14/23 04:48
12/14/23 04:48
Labs
Hgb 10.9 g/dL (13.0-18.0) L 12/14/23 04:48
Hct 30.0 % (39.0-52.0) L 12/14/23 04:48
Plt Count 340 10^3/uL (130-400) 12/14/23 04:48
Sodium 137 mmol/L (135-145) 12/14/23 04:48
Potassium 4.5 mmol/L (3.5-5.1) 12/14/23 04:48
BUN 13 mg/dl (9-20) 12/14/23 04:48
Creatinine 0.7 mg/dL (0.7-1.3) 12/14/23 04:48
Glucose 82 mg/dl (70-99) 12/14/23 04:48
Vital Signs and I&O:
Vital Signs
Temp Pulse Resp BP Pulse Ox
97.8 F 75 16 142/58 97
12/14/23 04:46 12/14/23 00:30 12/14/23 04:46 12/13/23 22:39 12/14/23 04:46
Vital Signs
Temp Pulse Resp BP Pulse Ox
97.8 F 75 16 142/58 97
12/14/23 04:46 12/14/23 00:30 12/14/23 04:46 12/13/23 22:39 12/14/23 04:46
Physical Exam
Physical Exam
GEN: AAOx3
HEENT: mmm
LUNGS: No audible wheeze
CV: Left ACW implant site pressure dressing removed and Aquacel intact underneath with 3 less than dime sized areas of blood noted, but no tenderness or hematoma. Paced on tele
ABD: ND
EXT: No edema
NEURO: Gross non-focal
SKIN: No rash
[2023-12-14 08:06] VITALS: BP 145/65
[2023-12-14] MEDS: PROCARDIA XL (EXTENDED RELEASE) 30 MG PO (08:07)
[2023-12-14] MEDS: TOPROL XL 12.5 MG PO (08:07)
--- NOTE | 2023-12-14 08:27 | W.DS.TRANS ---
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
-
Discharge Instructions:
Discharge Diagnosis/Procedures S/P Pacemaker implant
Diet Low Cholesterol
Driving Restrictions No driving for 1 week
Bathing Restrictions OK to Shower
Instructions:
Stand-Alone Forms: DC Inst - Implanted Device
Changes to Home Medications: Yes
Discharge Medications:
DC Medications w/original date entered in [employer]
alprazolam 0.5 mg tablet 0.25 mg PO HSPRN PRN sleep/anxiety 12/04/23
lisinopril 5 mg tablet 5 mg PO HS Blood Pressure 12/04/23
nifedipine 30 mg tablet,extended release 30 mg PO BID Blood Pressure 12/04/23
simvastatin 10 mg tablet 10 mg PO HS High Cholesterol 12/04/23
tamsulosin 0.4 mg capsule 0.4 mg PO HS Urinary Issue 12/04/23
trazodone 50 mg tablet 50 mg PO HS Sleep 12/04/23
Vitamin D3 1 tab PO DAILY 12/13/23
ascorbic acid (vitamin C) 1,000 mg tablet,extended release (Vitamin C ER) 1,000 mg PO BID Stroke 12/13/23
multivitamin 1 tab PO DAILY Supplement 12/13/23
metoprolol succinate 25 mg tablet,extended release 24 hr (Toprol XL) 12.5 mg (1/2 x 25 mg) PO BID Blood pressure #60 tabs 12/14/23
Home Medication Changes
Previous dose of Toprol XL 12.5 mg BID resumed
Pending Results: No
--- NOTE | 2023-12-14 09:14 | PTCARENOTE ---
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 Pt received awake and alert, Ox3. VSS, CM shows A/V pacing 60's, POX 96% on RA. Left chest dsg remains CDI with Tegaderm in place, left immobilizer on as ordered. Pt denies any pain or
discomfort at this time. For D/C today.
--- NOTE | 2023-12-14 11:59 | PTCARENOTE ---
All D/C info reviewed with pt, all questions answered. Pt D/C'd home with family.
== END 2023-12-14 11:45 | disposition home or self-care (01) ==
LOC: CATH 11:58
PROVIDERS: Nurse Practitioner; ATTENDING PHYSICIAN Internal Medicine Cardiovascular Disease; FAMILY PHYSICIAN Internal Medicine; OTHER PHYSICIAN Internal Medicine Cardiovascular Disease
DX: I49.5 Sick sinus syndrome (principal); N40.0 Benign prostatic hyperplasia without lower urinary tract symptoms; E78.5 Hyperlipidemia, unspecified; I10 Essential (primary) hypertension; I44.0 Atrioventricular block, first degree; I45.2 Bifascicular block; R55 Syncope and collapse; R53.83 Other fatigue; I47.20 Ventricular tachycardia, unspecified; Z86.16 Personal history of COVID-19; Z79.899 Other long term (current) drug therapy
CPT/HCPCS: 33208; 71045; 80048; 85027; 93005; C1769; C1785; C1887; C1892; C1898